=== PATIENT | female | born 1945 | race Caucasian/White ===

== ENCOUNTER 2019-07-16 14:14 | Inpatient (IN) ==
[2019-07-16] MEDS ORDERED: Nitroglycerin 0.4 MG TAB.SUBL SL PRN (14:19)
[2019-07-16] MEDS ORDERED: Ondansetron 4 MG/2 ML VIAL IVP STA (14:28)
[2019-07-16 15:02] LABS: Basophils # 0.1 K/mcL (0.0-0.2); Basophils % 0.8 %; Eosinophils # 0.2 K/mcL (0.0-0.6); Eosinophils % 2.6 %; Hematocrit 41.2 % (35.3-44.9); Hemoglobin 13.2 g/dL (11.5-15.4); Immature Granulocytes % 0.3 % (0-4); Lymphocytes # 2.2 K/mcL (0.6-4.6); Lymphocytes % 32.7 %; Mean Corpuscular Hemoglobin 29.5 pg (28.0-33.3); Mean Corpuscular Volume 92.2 fL (83.0-100.0); Mean Platelet Volume 10.8 fL (9.4-12.4); Monocytes # 0.4 K/mcL (0.0-1.3); Monocytes % 5.4 %; Neutrophils # 3.9 K/mcL (1.6-8.9); Platelet Count 246 K/mcL (140-400); Red Blood Count 4.47 M/mcL (3.82-4.97); Red Cell Distribution Width 12.9 % (11.5-14.5); Segmented Neutrophils % 58.2 %; White Blood Count 6.7 K/mcL (4.3-11.1)
[2019-07-16 15:03] LABS: BUN/Creatinine Ratio 24 (6-26); Blood Urea Nitrogen 16 mg/dL (8-23); Calcium 9.6 mg/dL (8.6-10.3); Carbon Dioxide 26 mEq/L (23-29); Chloride 105 mEq/L (98-107); Glucose 125 mg/dL (70-105); Osmolality,Calculated 293 (280-300); Potassium 3.6 mEq/L (3.5-5.1); Sodium 140 mEq/L (136-145); Troponin I < 0.03 ng/mL (< 0.04); eGFR For African Americans > 60 (> 60); eGFR For Non-African Americans > 60 (> 60)
[2019-07-16] MEDS ORDERED: Naloxone 0.4 MG/ML INJ IVP PRN (17:54)
[2019-07-16 18:20] LABS: Magnesium 1.9 mg/dL (1.6-2.6); Phosphorous 2.3 mg/dL (2.7-4.5)
[2019-07-16] MEDS ORDERED: *HR* Heparin 5,000 UNIT/ML VIAL IVP PRN ×2 (18:45)
[2019-07-16] MEDS ORDERED: Heparin 25,000 UNIT/250 ML D5W 25,000 UNIT/250 ML IV.SOLN IVC SCH (18:45)
[2019-07-16] MEDS ORDERED: *HR* Heparin 5,000 UNIT/ML VIAL IVP ONE (18:45)
[2019-07-16 20:41] LABS: Hematocrit 39.7 % (35.3-44.9); Hemoglobin 12.9 g/dL (11.5-15.4); Mean Corpuscular HGB Conc 32.5 g/dL (31.6-35.5); Mean Corpuscular Hemoglobin 30.3 pg (28.0-33.3); Mean Corpuscular Volume 93.2 fL (83.0-100.0); Mean Platelet Volume 10.6 fL (9.4-12.4); Platelet Count 217 K/mcL (140-400); Red Blood Count 4.26 M/mcL (3.82-4.97); White Blood Count 6.4 K/mcL (4.3-11.1)
[2019-07-16 20:44] LABS: Heparin anti-factor XA UFH < 0.04 IU/mL (0.30-0.70); Prothrombin Time 10.9 Seconds (9.4-12.1)
[2019-07-16] MEDS: Gabapentin 300 MG CAPSULE PO SCH (21:20)
[2019-07-17 04:17] LABS: Basophils # 0.1 K/mcL (0.0-0.2); Basophils % 0.9 %; Eosinophils # 0.2 K/mcL (0.0-0.6); Eosinophils % 3.4 %; Hematocrit 38.2 % (35.3-44.9); Hemoglobin 12.5 g/dL (11.5-15.4); Immature Granulocytes % 0.3 % (0-4); Lymphocytes # 2.8 K/mcL (0.6-4.6); Lymphocytes % 39.3 %; Mean Corpuscular HGB Conc 32.7 g/dL (31.6-35.5); Mean Corpuscular Hemoglobin 30.3 pg (28.0-33.3); Mean Corpuscular Volume 92.7 fL (83.0-100.0); Mean Platelet Volume 10.9 fL (9.4-12.4); Monocytes # 0.4 K/mcL (0.0-1.3); Neutrophils # 3.6 K/mcL (1.6-8.9); Platelet Count 218 K/mcL (140-400); Red Blood Count 4.12 M/mcL (3.82-4.97); Segmented Neutrophils % 51.1 %
[2019-07-17 04:33] LABS: BUN/Creatinine Ratio 24 (6-26); Blood Urea Nitrogen 16 mg/dL (8-23); Calcium 8.9 mg/dL (8.6-10.3); Carbon Dioxide 27 mEq/L (23-29); Chloride 106 mEq/L (98-107); Glucose 100 mg/dL (70-105); Osmolality,Calculated 293 (280-300); Potassium 3.9 mEq/L (3.5-5.1); Sodium 141 mEq/L (136-145); eGFR For African Americans > 60 (> 60); eGFR For Non-African Americans > 60 (> 60)
[2019-07-17] MEDS ORDERED: Nitroglycerin 0.4 MG TAB.SUBL SL PRN (06:50)
[2019-07-17] MEDS: Aspirin Enteric Coated 81 MG Tablet PO SCH (09:32)
[2019-07-17] MEDS: Loratadine 10 MG TABLET PO SCH (09:32)
[2019-07-17] MEDS: Gabapentin 300 MG CAPSULE PO SCH ×3 (09:32→20:19)
[2019-07-17] MEDS: lisinopriL 5 MG TABLET PO SCH (09:32)
[2019-07-17] MEDS: *HR* Heparin 5,000 UNIT/ML VIAL SQ SCH (20:25)
[2019-07-17] MEDS ORDERED: NON-FORMULARY MEDICATION 1 EACH EACH (Glucosamine Sulfate Dipot Chlr [Glucosamine] 1,000 M PO SCH (21:00)
[2019-07-18] MEDS: *HR* Heparin 5,000 UNIT/ML VIAL SQ SCH ×2 (02:36→16:30)
[2019-07-18] MEDS ORDERED: 0.9 % Sodium Chloride 1,000 ML ONE ×2 (07:36→07:41)
[2019-07-18] MEDS: Gabapentin 300 MG CAPSULE PO SCH ×3 (07:37→21:13)
[2019-07-18] MEDS: lisinopriL 5 MG TABLET PO SCH (07:37)
[2019-07-18] MEDS ORDERED: Heparin 1,000 UNITS/500 mL 500 ML ONE (07:37)
[2019-07-18] MEDS ORDERED: Nitroglycerin 1,000 MCG/10 ML VIAL IV ONE (07:37)
[2019-07-18] MEDS: Aspirin Enteric Coated 81 MG Tablet PO SCH (07:37)
[2019-07-18] MEDS: Loratadine 10 MG TABLET PO SCH (07:37)
[2019-07-18] MEDS ORDERED: *HR* Heparin 10,000 UNIT/10 ML VIAL ONE (07:37)
[2019-07-18] MEDS ORDERED: ISOVUE-370 200 ML INFUS..BTL ONE (07:37)
[2019-07-18] MEDS ORDERED: *HR* FentaNYL (PF) 100 MCG/2 ML VIAL ONE (08:05)
[2019-07-18] MEDS ORDERED: *HR* Midazolam HCl 2 MG/2 ML VIAL ONE (08:05)
[2019-07-18] MEDS ORDERED: BIOTIN 5 MG PO SCH (09:00)
[2019-07-18 19:59] LABS: Estimated Average Glucose 140 mg/dl
[2019-07-18] MEDS: Chlorhexidine Rinse 15 ML MOUTHWASH MM SCH (21:13)
[2019-07-19] MEDS ORDERED: Dextrose 50 % in Water (Vial) 30 ML, Sodium Bicarbonate 20 MEQ, Potassium Chloride 15 M... TH ONE (02:00)
[2019-07-19] MEDS ORDERED: Heparin 15,000 UNIT in 0.9 % Sodium Chloride 500 ML IV ONE (02:00)
[2019-07-19] MEDS ORDERED: Norepinephrine 4 MG in 0.9 % Sodium Chloride 250 ML IVC PRN (02:00)
[2019-07-19] MEDS ORDERED: Dextrose 50 % in Water (Vial) 30 ML, Sodium Bicarbonate 20 MEQ, Lidocaine 1% 5 ML, Insu... TH ONE ×3 (02:00)
[2019-07-19] MEDS ORDERED: Insulin Human Regular 100 UNIT in 0.9 % Sodium Chloride 100 ML IV PRN (02:00)
[2019-07-19] MEDS: *HR* Heparin 5,000 UNIT/ML VIAL SQ SCH (06:10)
[2019-07-19] MEDS: Chlorhexidine Rinse 15 ML MOUTHWASH MM SCH ×2 (06:18→20:34)
[2019-07-19] MEDS ORDERED: *HR* Midazolam HCl 5 MG/5 ML VIAL IVP ONE (06:59)
[2019-07-19] MEDS ORDERED: *HR* FentaNYL (PF) 1,000 MCG/20 ML VIAL ONE (06:59)
[2019-07-19] MEDS ORDERED: *HR* Propofol 200 MG/20 ML VIAL IVP ONE (06:59)
[2019-07-19] MEDS ORDERED: Clindamycin 900 MG/50 ML 900 MG/50 ML IV.SOLN IVPB ONE (07:00)
[2019-07-19] MEDS ORDERED: *HR* PHENYLEPHRINE 1,000 MCG/10 ML SYRINGE IVP ONE (07:04)
[2019-07-19] MEDS ORDERED: Dexamethasone 4 MG/ML VIAL ONE (07:04)
[2019-07-19] MEDS ORDERED: Famotidine 20 MG/2 ML VIAL ONE (07:05)
[2019-07-19] MEDS ORDERED: *HR* Magnesium Sulfate 1 GM/2 ML VIAL ONE (07:05)
[2019-07-19] MEDS ORDERED: Lidocaine 2% Syringe 100 MG/5 ML ONE (07:05)
[2019-07-19] MEDS ORDERED: Tranexamic Acid 1,000 MG/10 ML VIAL ONE (07:14)
[2019-07-19 08:49] LABS: ABG Base Excess 0 mEq/L (-2 to 3); ABG Chloride 107 mEq/L (98-107); ABG Glucose 133 mg/dL (60-95); ABG HCO3 27 mEq/L (21-27); ABG Ionized Calcium 1.07 mmol/L (1.15-1.35); ABG Oxygen Saturation 100 % (95-98); ABG PCO2 50 mmHg (35-45); ABG PH 7.33 pH Units (7.32-7.45); ABG PO2 357 mmHg (85-104); ABG TCO2 28 mEq/L (20-26)
[2019-07-19] MEDS ORDERED: Albumin Human 5% 50.0 GM/1,000 ML IV.SOLN ONE (09:35)
[2019-07-19] MEDS ORDERED: *HR* Rocuronium Bromide 50 MG/5 ML VIAL ONE ×2 (09:39)
[2019-07-19 09:54] LABS: ABG Base Excess 0 mEq/L (-2 to 3); ABG Chloride 106 mEq/L (98-107); ABG Glucose 141 mg/dL (60-95); ABG HCO3 24 mEq/L (21-27); ABG Ionized Calcium 1.02 mmol/L (1.15-1.35); ABG Oxygen Saturation 100 % (95-98); ABG PCO2 35 mmHg (35-45); ABG PH 7.44 pH Units (7.32-7.45); ABG PO2 259 mmHg (85-104); ABG TCO2 25 mEq/L (20-26)
[2019-07-19 10:55] LABS: ABG Base Excess 6 mEq/L (-2 to 3); ABG Chloride 99 mEq/L (98-107); ABG Glucose 209 mg/dL (60-95); ABG HCO3 28 mEq/L (21-27); ABG Ionized Calcium 0.88 mmol/L (1.15-1.35); ABG Oxygen Saturation 100 % (95-98); ABG PCO2 29 mmHg (35-45); ABG PO2 621 mmHg (85-104); ABG TCO2 29 mEq/L (20-26)
[2019-07-19] MEDS ORDERED: Calcium Gluconate 1,000 MG/10 ML VIAL ONE ×2 (11:04→11:58)
[2019-07-19] MEDS ORDERED: Protamine Sulfate 250 MG/25 ML VIAL IVP ONE (11:04)
[2019-07-19 11:05] LABS: ABG Base Excess 4 mEq/L (-2 to 3); ABG Chloride 101 mEq/L (98-107); ABG Glucose 161 mg/dL (60-95); ABG HCO3 27 mEq/L (21-27); ABG Ionized Calcium 0.94 mmol/L (1.15-1.35); ABG Oxygen Saturation 100 % (95-98); ABG PCO2 32 mmHg (35-45); ABG PH 7.53 pH Units (7.32-7.45); ABG PO2 589 mmHg (85-104); ABG TCO2 28 mEq/L (20-26)
[2019-07-19 11:45] LABS: ABG Base Excess 0 mEq/L (-2 to 3); ABG Chloride 105 mEq/L (98-107); ABG Glucose 108 mg/dL (60-95); ABG HCO3 24 mEq/L (21-27); ABG Ionized Calcium 1.07 mmol/L (1.15-1.35); ABG Oxygen Saturation 100 % (95-98); ABG PCO2 36 mmHg (35-45); ABG PH 7.44 pH Units (7.32-7.45); ABG PO2 255 mmHg (85-104); ABG TCO2 25 mEq/L (20-26)
[2019-07-19] MEDS ORDERED: Potassium Chloride 40 MEQ/200 ML BAG IVPB PRN (12:04)
[2019-07-19] MEDS ORDERED: *HR* Dextrose 50 % in Water (Syg) 50 ML SYRINGE IVP PRN (12:04)
[2019-07-19] MEDS ORDERED: Acetaminophen 325 MG TABLET PO PRN (12:05)
[2019-07-19] MEDS ORDERED: Calcium Gluconate 1gm/50mL 1 GM/50 ML BAG IVPB PRN (12:05)
[2019-07-19] MEDS ORDERED: Acetaminophen 650 MG RECTAL SUPP RC PRN (12:05)
[2019-07-19] MEDS ORDERED: Ondansetron 4 MG/2 ML VIAL IVP PRN (12:05)
[2019-07-19] MEDS ORDERED: Albumin Human 5% 12.5 GM/250 ML IV.SOLN IVPB PRN (12:05)
[2019-07-19] MEDS ORDERED: Norepinephrine 4 MG/254 ML IV.SOLN IVC SCH (12:15)
[2019-07-19 12:51] LABS: ABG Base Excess 3 mEq/L (-2 to 3); ABG HCO3 26 mEq/L (21-27); ABG Oxygen Saturation 99 % (95-98); ABG PCO2 31 mmHg (35-45); ABG PH 7.52 pH Units (7.32-7.45); ABG PO2 111 mmHg (85-104); ABG TCO2 27 mEq/L (20-26); Blood Gas VT 500 cc
[2019-07-19 12:59] LABS: Basophils # 0.1 K/mcL (0.0-0.2); Basophils % 0.3 %; Eosinophils # 0.1 K/mcL (0.0-0.6); Eosinophils % 0.4 %; Hematocrit 29.1 % (35.3-44.9); Hemoglobin 9.7 g/dL (11.5-15.4); Immature Granulocytes % 0.5 % (0-4); Lymphocytes # 1.5 K/mcL (0.6-4.6); Lymphocytes % 10.1 %; Mean Corpuscular HGB Conc 33.3 g/dL (31.6-35.5); Mean Corpuscular Hemoglobin 30.2 pg (28.0-33.3); Mean Corpuscular Volume 90.7 fL (83.0-100.0); Mean Platelet Volume 10.6 fL (9.4-12.4); Monocytes # 0.8 K/mcL (0.0-1.3); Monocytes % 5.4 %; Neutrophils # 12.7 K/mcL (1.6-8.9); Platelet Count 129 K/mcL (140-400); Red Blood Count 3.21 M/mcL (3.82-4.97); Red Cell Distribution Width 12.8 % (11.5-14.5); Segmented Neutrophils % 83.3 %
[2019-07-19 13:01] LABS: White Blood Count 15.2 K/mcL (4.3-11.1)
[2019-07-19 13:03] LABS: INR 1.2
[2019-07-19 13:06] LABS: Activated Partial Thrombo Time 31.8 Seconds (26.0-36.0)
[2019-07-19 13:08] LABS: Prothrombin Time 14.1 Seconds (9.4-12.1)
[2019-07-19] MEDS: 0.9 % Sodium Chloride w KCl 20 MEQ/1,000 ML MLS IVC SCH (13:12)
[2019-07-19] MEDS: Pantoprazole 40 MG VIAL IVP SCH (13:12)
[2019-07-19 13:14] LABS: BUN/Creatinine Ratio 20 (6-26); Blood Urea Nitrogen 13 mg/dL (8-23); Calcium 8.4 mg/dL (8.6-10.3); Carbon Dioxide 24 mEq/L (23-29); Chloride 106 mEq/L (98-107); Glucose 118 mg/dL (70-105); Osmolality,Calculated 289 (280-300); Potassium 3.6 mEq/L (3.5-5.1); Sodium 139 mEq/L (136-145); eGFR For African Americans > 60 (> 60); eGFR For Non-African Americans > 60 (> 60)
[2019-07-19] MEDS: niCARdipine 20 MG/200 ML MLS IVC SCH ×4 (13:20→20:32)
[2019-07-19] MEDS: Insulin Human Regular 100 UNIT in 0.9 % Sodium Chloride 100 ML IVC SCH (14:30)
[2019-07-19] MEDS: Insulin Regular, Human 100 UNIT/ML IV PRN ×2 (14:30→17:30)
[2019-07-19] MEDS: *HR* FentaNYL (PF) 100 MCG/2 ML VIAL IVP PRN (15:01)
[2019-07-19] MEDS ORDERED: 0.9 % Sodium Chloride 500 ML ONE (15:33)
[2019-07-19] MEDS: Clindamycin 900 MG/50 ML 900 MG/50 ML IV.SOLN IVPB SCH ×2 (16:01→23:22)
[2019-07-19] MEDS: *HR* OxyCODONE/APAP 5/325 TABLET PO PRN ×2 (16:22→20:35)
[2019-07-19 16:44] LABS: ABG Base Excess 0 mEq/L (-2 to 3); ABG HCO3 26 mEq/L (21-27); ABG Oxygen Saturation 95 % (95-98); ABG PCO2 51 mmHg (35-45); ABG PH 7.32 pH Units (7.32-7.45); ABG PO2 85 mmHg (85-104); ABG TCO2 28 mEq/L (20-26)
[2019-07-19] MEDS: Metoclopramide 10 MG/2 ML VIAL IVP SCH ×2 (17:59→23:22)
[2019-07-19 18:23] LABS: ABG Base Excess -2 mEq/L (-2 to 3); ABG HCO3 26 mEq/L (21-27); ABG Oxygen Saturation 88 % (95-98); ABG PCO2 64 mmHg (35-45); ABG PH 7.22 pH Units (7.32-7.45); ABG PO2 68 mmHg (85-104); ABG TCO2 28 mEq/L (20-26)
[2019-07-19] MEDS: Loratadine 10 MG TABLET PO SCH (19:53)
[2019-07-19] MEDS: lisinopriL 5 MG TABLET PO SCH (19:53)
[2019-07-19 20:20] LABS: ABG Base Excess -3 mEq/L (-2 to 3); ABG HCO3 24 mEq/L (21-27); ABG Oxygen Saturation 93 % (95-98); ABG PCO2 46 mmHg (35-45); ABG PH 7.32 pH Units (7.32-7.45); ABG PO2 72 mmHg (85-104); ABG TCO2 25 mEq/L (20-26)
[2019-07-20] MEDS: *HR* OxyCODONE/APAP 5/325 TABLET PO PRN ×5 (00:40→21:09)
[2019-07-20] MEDS: *HR* FentaNYL (PF) 100 MCG/2 ML VIAL IVP PRN ×5 (01:41→16:48)
[2019-07-20] MEDS ORDERED: 0.9 % Sodium Chloride 500 ML ONE ×2 (03:14→08:17)
[2019-07-20 04:01] LABS: Basophils % 0.1 %; Hematocrit 30.5 % (35.3-44.9); Hemoglobin 9.9 g/dL (11.5-15.4); Immature Granulocytes % 0.5 % (0-4); Lymphocytes # 1.4 K/mcL (0.6-4.6); Lymphocytes % 9.2 %; Mean Corpuscular HGB Conc 32.5 g/dL (31.6-35.5); Mean Corpuscular Hemoglobin 30.3 pg (28.0-33.3); Mean Corpuscular Volume 93.3 fL (83.0-100.0); Mean Platelet Volume 10.9 fL (9.4-12.4); Monocytes # 1.2 K/mcL (0.0-1.3); Monocytes % 7.8 %; Neutrophils # 12.6 K/mcL (1.6-8.9); Platelet Count 137 K/mcL (140-400); Red Blood Count 3.27 M/mcL (3.82-4.97); Red Cell Distribution Width 13.5 % (11.5-14.5); Segmented Neutrophils % 82.4 %; White Blood Count 15.3 K/mcL (4.3-11.1)
[2019-07-20 04:05] LABS: INR 1.1
[2019-07-20 04:08] LABS: Activated Partial Thrombo Time 25.6 Seconds (26.0-36.0)
[2019-07-20 04:17] LABS: BUN/Creatinine Ratio 25 (6-26); Blood Urea Nitrogen 18 mg/dL (8-23); Calcium 8.2 mg/dL (8.6-10.3); Carbon Dioxide 23 mEq/L (23-29); Chloride 107 mEq/L (98-107); Glucose 139 mg/dL (70-105); Magnesium 2.1 mg/dL (1.6-2.6); Osmolality,Calculated 290 (280-300); Potassium 4.2 mEq/L (3.5-5.1); Sodium 138 mEq/L (136-145); eGFR For African Americans > 60 (> 60); eGFR For Non-African Americans > 60 (> 60)
[2019-07-20] MEDS: niCARdipine 20 MG/200 ML MLS IVC SCH ×2 (04:17→06:39)
[2019-07-20] MEDS: Metoclopramide 10 MG/2 ML VIAL IVP SCH ×4 (05:20→23:36)
[2019-07-20] MEDS: 0.9 % Sodium Chloride w KCl 20 MEQ/1,000 ML MLS IVC SCH (07:30)
[2019-07-20] MEDS: Aspirin Enteric Coated 81 MG Tablet PO SCH (07:31)
[2019-07-20] MEDS: Furosemide 20 MG/2 ML VIAL IVP SCH ×2 (07:31→20:04)
[2019-07-20] MEDS: Chlorhexidine Rinse 15 ML MOUTHWASH MM SCH ×2 (07:31→20:05)
[2019-07-20] MEDS: Pantoprazole 40 MG VIAL IVP SCH (07:31)
[2019-07-20] MEDS: Gabapentin 300 MG CAPSULE PO SCH ×3 (07:32→20:06)
[2019-07-20] MEDS ORDERED: D5% in Water 1,000 ML IVC PRN (08:42)
[2019-07-20] MEDS ORDERED: Dextrose Gel 15 GM/37.5 ML TUBE PO PRN ×2 (08:42)
[2019-07-20] MEDS ORDERED: *HR* Dextrose 50 % in Water (Syg) 50 ML SYRINGE IVP PRN (08:42)
[2019-07-20] MEDS: *HR* Heparin 5,000 UNIT/ML VIAL SQ SCH ×4 (09:00→18:54)
[2019-07-20] MEDS: Insulin LISPRO 300 UNITS/3 ML VIAL SQ SCH ×2 (11:32→15:24)
[2019-07-20] MEDS: lisinopriL 5 MG TABLET PO SCH (11:37)
[2019-07-20] MEDS: Loratadine 10 MG TABLET PO SCH (11:37)
[2019-07-20] MEDS: Insulin Human Regular 100 UNIT in 0.9 % Sodium Chloride 100 ML IVC SCH (11:55)
[2019-07-20] MEDS ORDERED: Insulin LISPRO 300 UNITS/3 ML VIAL SQ SCH (21:00)
[2019-07-21] MEDS: *HR* OxyCODONE/APAP 5/325 TABLET PO PRN ×4 (02:11→22:35)
[2019-07-21] MEDS: *HR* FentaNYL (PF) 100 MCG/2 ML VIAL IVP PRN ×2 (02:19→05:10)
[2019-07-21 03:55] LABS: Basophils % 0.1 %; Eosinophils % 0.1 %; Hematocrit 31.5 % (35.3-44.9); Hemoglobin 9.9 g/dL (11.5-15.4); Immature Granulocytes % 0.6 % (0-4); Lymphocytes % 12.4 %; Mean Corpuscular HGB Conc 31.4 g/dL (31.6-35.5); Mean Corpuscular Hemoglobin 29.8 pg (28.0-33.3); Mean Corpuscular Volume 94.9 fL (83.0-100.0); Mean Platelet Volume 11.1 fL (9.4-12.4); Monocytes # 1.2 K/mcL (0.0-1.3); Monocytes % 7.6 %; Neutrophils # 12.9 K/mcL (1.6-8.9); Platelet Count 130 K/mcL (140-400); Red Blood Count 3.32 M/mcL (3.82-4.97); Red Cell Distribution Width 13.9 % (11.5-14.5); Segmented Neutrophils % 79.2 %; White Blood Count 16.2 K/mcL (4.3-11.1)
[2019-07-21 04:12] LABS: BUN/Creatinine Ratio 27 (6-26); Blood Urea Nitrogen 17 mg/dL (8-23); Calcium 8.3 mg/dL (8.6-10.3); Carbon Dioxide 27 mEq/L (23-29); Chloride 104 mEq/L (98-107); Glucose 140 mg/dL (70-105); Osmolality,Calculated 290 (280-300); Potassium 4.3 mEq/L (3.5-5.1); Sodium 138 mEq/L (136-145); eGFR For African Americans > 60 (> 60); eGFR For Non-African Americans > 60 (> 60)
[2019-07-21] MEDS: Metoclopramide 10 MG/2 ML VIAL IVP SCH (05:11)
[2019-07-21] MEDS: *HR* Heparin 5,000 UNIT/ML VIAL SQ SCH ×2 (05:13→17:25)
[2019-07-21] MEDS: lisinopriL 5 MG TABLET PO SCH ×2 (08:39→09:42)
[2019-07-21] MEDS: Pantoprazole 40 MG VIAL IVP SCH (08:39)
[2019-07-21] MEDS: Chlorhexidine Rinse 15 ML MOUTHWASH MM SCH ×3 (08:39→21:55)
[2019-07-21] MEDS: Furosemide 20 MG/2 ML VIAL IVP SCH (08:40)
[2019-07-21] MEDS: Loratadine 10 MG TABLET PO SCH ×2 (08:40→09:42)
[2019-07-21] MEDS: Aspirin Enteric Coated 81 MG Tablet PO SCH ×2 (08:40→09:42)
[2019-07-21] MEDS: Gabapentin 300 MG CAPSULE PO SCH ×4 (08:40→23:41)
[2019-07-21] MEDS: Insulin LISPRO 300 UNITS/3 ML VIAL SQ SCH ×4 (08:41→21:56)
[2019-07-21] MEDS ORDERED: Dextrose Gel 15 GM/37.5 ML TUBE PO PRN ×2 (08:58)
[2019-07-21] MEDS ORDERED: *HR* Dextrose 50 % in Water (Syg) 50 ML SYRINGE IVP PRN (08:58)
[2019-07-21] MEDS ORDERED: Ondansetron 4 MG/2 ML VIAL IVP PRN (08:58)
[2019-07-21] MEDS ORDERED: Insulin Regular, Human 100 UNIT/ML IV PRN (08:58)
[2019-07-21] MEDS ORDERED: D5% in Water 1,000 ML IVC PRN (08:58)
[2019-07-21] MEDS ORDERED: *HR* FentaNYL (PF) 100 MCG/2 ML VIAL IVP PRN (08:58)
[2019-07-21] MEDS ORDERED: Nitroglycerin 0.4 MG TAB.SUBL SL PRN (08:58)
[2019-07-21] MEDS ORDERED: Naloxone 0.4 MG/ML INJ IVP PRN (08:58)
[2019-07-21] MEDS ORDERED: Pantoprazole 40 MG VIAL IVP SCH (09:00)
[2019-07-21] MEDS ORDERED: Gabapentin 300 MG CAPSULE PO SCH (15:00)
[2019-07-22] MEDS: *HR* OxyCODONE/APAP 5/325 TABLET PO PRN ×4 (02:29→19:52)
[2019-07-22 02:41] LABS: Basophils % 0.3 %; Eosinophils % 0.1 %; Hematocrit 31.5 % (35.3-44.9); Hemoglobin 9.9 g/dL (11.5-15.4); Immature Granulocytes % 0.5 % (0-4); Lymphocytes # 1.9 K/mcL (0.6-4.6); Lymphocytes % 12.9 %; Mean Corpuscular HGB Conc 31.4 g/dL (31.6-35.5); Mean Corpuscular Volume 95.5 fL (83.0-100.0); Mean Platelet Volume 11.6 fL (9.4-12.4); Monocytes % 6.9 %; Neutrophils # 11.7 K/mcL (1.6-8.9); Platelet Count 154 K/mcL (140-400); Red Cell Distribution Width 13.5 % (11.5-14.5); Segmented Neutrophils % 79.3 %; White Blood Count 14.7 K/mcL (4.3-11.1)
[2019-07-22 02:47] LABS: BUN/Creatinine Ratio 28 (6-26); Blood Urea Nitrogen 18 mg/dL (8-23); Calcium 8.4 mg/dL (8.6-10.3); Carbon Dioxide 31 mEq/L (23-29); Chloride 101 mEq/L (98-107); Glucose 135 mg/dL (70-105); Osmolality,Calculated 288 (280-300); Potassium 4.4 mEq/L (3.5-5.1); Sodium 137 mEq/L (136-145); eGFR For African Americans > 60 (> 60); eGFR For Non-African Americans > 60 (> 60)
[2019-07-22] MEDS: *HR* Heparin 5,000 UNIT/ML VIAL SQ SCH ×2 (06:21→17:15)
[2019-07-22] MEDS: lisinopriL 5 MG TABLET PO SCH (08:22)
[2019-07-22] MEDS: Chlorhexidine Rinse 15 ML MOUTHWASH MM SCH ×2 (08:22→19:48)
[2019-07-22] MEDS: Loratadine 10 MG TABLET PO SCH (08:23)
[2019-07-22] MEDS: Insulin LISPRO 300 UNITS/3 ML VIAL SQ SCH ×4 (08:23→22:07)
[2019-07-22] MEDS: Gabapentin 300 MG CAPSULE PO SCH ×3 (08:23→19:49)
[2019-07-22] MEDS: Aspirin Enteric Coated 81 MG Tablet PO SCH (08:23)
[2019-07-22] MEDS ORDERED: Pantoprazole 40 MG VIAL IVP SCH (09:00)
[2019-07-22] MEDS: Acetaminophen 325 MG TABLET PO PRN (17:46)
[2019-07-23 02:51] LABS: Basophils # 0.1 K/mcL (0.0-0.2); Basophils % 0.6 %; Eosinophils # 0.3 K/mcL (0.0-0.6); Eosinophils % 2.5 %; Hematocrit 29.7 % (35.3-44.9); Hemoglobin 9.5 g/dL (11.5-15.4); Immature Granulocytes % 0.5 % (0-4); Lymphocytes # 2.7 K/mcL (0.6-4.6); Lymphocytes % 23.2 %; Mean Corpuscular Hemoglobin 30.5 pg (28.0-33.3); Mean Corpuscular Volume 95.5 fL (83.0-100.0); Mean Platelet Volume 10.8 fL (9.4-12.4); Monocytes # 0.8 K/mcL (0.0-1.3); Monocytes % 6.9 %; Neutrophils # 7.8 K/mcL (1.6-8.9); Platelet Count 181 K/mcL (140-400); Red Blood Count 3.11 M/mcL (3.82-4.97); Red Cell Distribution Width 13.3 % (11.5-14.5); Segmented Neutrophils % 66.3 %; White Blood Count 11.8 K/mcL (4.3-11.1)
[2019-07-23 03:09] LABS: Magnesium 2.3 mg/dL (1.6-2.6); Phosphorous 3.4 mg/dL (2.7-4.5)
[2019-07-23 03:11] LABS: BUN/Creatinine Ratio 29 (6-26); Blood Urea Nitrogen 21 mg/dL (8-23); Calcium 8.5 mg/dL (8.6-10.3); Carbon Dioxide 32 mEq/L (23-29); Chloride 101 mEq/L (98-107); Glucose 114 mg/dL (70-105); Osmolality,Calculated 290 (280-300); Sodium 138 mEq/L (136-145); eGFR For African Americans > 60 (> 60); eGFR For Non-African Americans > 60 (> 60)
[2019-07-23] MEDS: *HR* Heparin 5,000 UNIT/ML VIAL SQ SCH ×2 (05:56→16:11)
[2019-07-23] MEDS: Acetaminophen 325 MG TABLET PO PRN ×2 (05:59→16:13)
[2019-07-23] MEDS: Chlorhexidine Rinse 15 ML MOUTHWASH MM SCH ×2 (08:33→20:23)
[2019-07-23] MEDS: lisinopriL 5 MG TABLET PO SCH (08:33)
[2019-07-23] MEDS: *HR* OxyCODONE/APAP 5/325 TABLET PO PRN (08:34)
[2019-07-23] MEDS: Aspirin Enteric Coated 81 MG Tablet PO SCH (08:35)
[2019-07-23] MEDS: Gabapentin 300 MG CAPSULE PO SCH ×3 (08:35→20:23)
[2019-07-23] MEDS: Loratadine 10 MG TABLET PO SCH (08:35)
[2019-07-23] MEDS: Insulin LISPRO 300 UNITS/3 ML VIAL SQ SCH ×4 (08:38→20:26)
[2019-07-23] MEDS ORDERED: polyethylene glycoL 3350 17 GM POWD.PACK PO PRN (17:41)
[2019-07-24] MEDS ORDERED: Menthol 9.1 MG LOZENGE PO PRN (00:42)
[2019-07-24 03:41] LABS: Hematocrit 29.6 % (35.3-44.9); Hemoglobin 9.6 g/dL (11.5-15.4); Mean Corpuscular HGB Conc 32.4 g/dL (31.6-35.5); Mean Corpuscular Hemoglobin 30.9 pg (28.0-33.3); Mean Corpuscular Volume 95.2 fL (83.0-100.0); Platelet Count 257 K/mcL (140-400); Red Blood Count 3.11 M/mcL (3.82-4.97); Red Cell Distribution Width 13.2 % (11.5-14.5); White Blood Count 9.3 K/mcL (4.3-11.1)
[2019-07-24 04:03] LABS: BUN/Creatinine Ratio 24 (6-26); Blood Urea Nitrogen 17 mg/dL (8-23); Calcium 8.6 mg/dL (8.6-10.3); Carbon Dioxide 30 mEq/L (23-29); Chloride 104 mEq/L (98-107); Glucose 120 mg/dL (70-105); Osmolality,Calculated 293 (280-300); Sodium 140 mEq/L (136-145); eGFR For African Americans > 60 (> 60); eGFR For Non-African Americans > 60 (> 60)
[2019-07-24] MEDS: *HR* OxyCODONE/APAP 5/325 TABLET PO PRN (05:43)
[2019-07-24] MEDS: *HR* Heparin 5,000 UNIT/ML VIAL SQ SCH (05:46)
[2019-07-24 07:28] VITALS: BP 105/60
[2019-07-24] MEDS: Insulin LISPRO 300 UNITS/3 ML VIAL SQ SCH (08:03)
[2019-07-24] MEDS: Aspirin Enteric Coated 81 MG Tablet PO SCH (08:03)
[2019-07-24] MEDS: Loratadine 10 MG TABLET PO SCH (08:04)
[2019-07-24] MEDS: Gabapentin 300 MG CAPSULE PO SCH (08:04)
[2019-07-24] MEDS: Chlorhexidine Rinse 15 ML MOUTHWASH MM SCH (08:04)
[2019-07-24] MEDS: lisinopriL 5 MG TABLET PO SCH (08:05)
== END 2019-07-24 10:34 | disposition home or self-care (01) | DRG 234 ==
LOC: EMEROOARM 14:14 → 3BNU 14:14 → SUATTDRO 07-17 12:18 → ICNU 07-19 09:11 → 2NNU 07-21 09:31
PROVIDERS: ADMIT Internal Medicine; ATTEND Student in an Organized Health Care Education/Training Program

== ENCOUNTER 2021-01-26 01:30 | Observation (INO) ==
[2021-01-26 03:11] LABS: Basophils # 0.1 K/mcL (0.0-0.2); Basophils % 0.6 %; Eosinophils # 0.1 K/mcL (0.0-0.6); Eosinophils % 1.2 %; Hematocrit 38.9 % (35.3-44.9); Hemoglobin 12.7 g/dL (11.5-15.4); Immature Granulocytes % 0.2 % (0-4); Lymphocytes # 1.6 K/mcL (0.6-4.6); Lymphocytes % 14.9 %; Mean Corpuscular HGB Conc 32.6 g/dL (31.6-35.5); Mean Corpuscular Hemoglobin 30.3 pg (28.0-33.3); Mean Corpuscular Volume 92.8 fL (83.0-100.0); Mean Platelet Volume 10.8 fL (9.4-12.4); Monocytes # 0.6 K/mcL (0.0-1.3); Monocytes % 5.2 %; Neutrophils # 8.3 K/mcL (1.6-8.9); Platelet Count 253 K/mcL (140-400); Red Blood Count 4.19 M/mcL (3.82-4.97); Red Cell Distribution Width 12.7 % (11.5-14.5); Segmented Neutrophils % 77.9 %; White Blood Count 10.7 K/mcL (4.3-11.1)
[2021-01-26 03:34] LABS: BUN/Creatinine Ratio 18 (6-26); Blood Urea Nitrogen 12 mg/dL (8-23); Calcium 9.4 mg/dL (8.6-10.3); Carbon Dioxide 28 mEq/L (23-29); Chloride 107 mEq/L (98-107); Glucose 132 mg/dL (70-105); Osmolality,Calculated 296 (280-300); Potassium 3.6 mEq/L (3.5-5.1); Sodium 142 mEq/L (136-145); eGFR For African Americans > 60 (> 60); eGFR For Non-African Americans > 60 (> 60)
[2021-01-26 03:35] LABS: Troponin I < 0.03 ng/mL (< 0.04)
[2021-01-26] MEDS ORDERED: Melatonin 3 MG TABLET PO PRN (07:30)
[2021-01-26] MEDS ORDERED: Ondansetron 4 MG/2 ML VIAL IVP PRN (07:30)
[2021-01-26] MEDS ORDERED: *HR* Enoxaparin 40 MG/0.4 ML SYRINGE SQ ONE (07:38)
[2021-01-26] MEDS ORDERED: hydrALAZINE 25 MG TABLET PO PRN (07:49)
[2021-01-26] MEDS ORDERED: hydrALAZINE 25 MG TABLET PO SCH (08:15)
[2021-01-26] MEDS: Aspirin Enteric Coated 81 MG Tablet PO SCH (08:36)
[2021-01-26] MEDS: Acetaminophen 325 MG TABLET PO PRN ×3 (08:37→22:14)
[2021-01-26] MEDS: Gabapentin 300 MG CAPSULE PO SCH ×3 (08:37→21:08)
[2021-01-26] MEDS: amLODIPine 5 MG TABLET PO SCH (08:37)
[2021-01-26] MEDS ORDERED: NON-FORMULARY MEDICATION 1 EACH EACH (Losartan Potassium [Cozaar] 50 MG Tablet) PO SCH (09:00)
[2021-01-26] MEDS ORDERED: Perflutren Lipid Microsphere 1.3 ML in 0.9 % Sodium Chloride 8.7 ML IVP PRN (12:33)
[2021-01-27 05:56] LABS: BUN/Creatinine Ratio 19 (6-26); Blood Urea Nitrogen 15 mg/dL (8-23); Calcium 8.6 mg/dL (8.6-10.3); Carbon Dioxide 27 mEq/L (23-29); Chloride 109 mEq/L (98-107); Glucose 104 mg/dL (70-105); Magnesium 1.9 mg/dL (1.6-2.6); Osmolality,Calculated 295 (280-300); Phosphorous 4.4 mg/dL (2.7-4.5); Sodium 142 mEq/L (136-145); eGFR For African Americans > 60 (> 60); eGFR For Non-African Americans > 60 (> 60)
[2021-01-27 05:58] LABS: Hematocrit 35.9 % (35.3-44.9); Hemoglobin 11.6 g/dL (11.5-15.4); Mean Corpuscular HGB Conc 32.3 g/dL (31.6-35.5); Mean Corpuscular Hemoglobin 30.9 pg (28.0-33.3); Mean Corpuscular Volume 95.7 fL (83.0-100.0); Mean Platelet Volume 11.2 fL (9.4-12.4); Platelet Count 247 K/mcL (140-400); Red Blood Count 3.75 M/mcL (3.82-4.97); Red Cell Distribution Width 13.1 % (11.5-14.5); White Blood Count 6.5 K/mcL (4.3-11.1)
[2021-01-27] MEDS ORDERED: *HR* Enoxaparin 40 MG/0.4 ML SYRINGE SQ SCH (06:00)
[2021-01-27] MEDS ORDERED: Regadenoson 0.4 MG/5 ML SYRINGE IVP ONE (08:51)
[2021-01-27] MEDS ORDERED: carvediloL 6.25 MG TABLET PO SCH (09:00)
[2021-01-27] MEDS: Gabapentin 300 MG CAPSULE PO SCH (10:43)
[2021-01-27] MEDS: amLODIPine 5 MG TABLET PO SCH (10:43)
[2021-01-27] MEDS: Aspirin Enteric Coated 81 MG Tablet PO SCH (10:43)
[2021-01-27] MEDS: Acetaminophen 325 MG TABLET PO PRN (10:43)
[2021-01-27 10:48] VITALS: BP 156/65; PULSE 68; TEMP 97.4; O2SAT 100
[2021-01-27] MEDS ORDERED: Isosorbide MONOnitrate (24 HR) 30 MG TAB.ER.24H PO SCH (12:30)
== END 2021-01-27 14:58 | disposition home or self-care (01) ==
LOC: EMEROOARM 01:30 → 3BNU 01:30 → SUATTDRO 06:57 → 3BNU 07:51
PROVIDERS: ADMIT Internal Medicine; ATTEND Internal Medicine